=== PATIENT | female | born 1960 | race Caucasian/White ===

== ENCOUNTER 2024-09-29 12:50 | Emergency (ER) | payer OTHER, SELFPAY ==
[2024-09-29 12:50] VITALS: BP 138/79
[2024-09-29 13:56] VITALS: BP 117/60
[2024-09-29 14:11] LABS: % Basophils 0.5 % (0-2); % Eosinophils 0.7 % (0-6); % Immature Granulocytes 0.4 % (0-0.5); % Lymphocytes 12.5 % (20.5-51.1); % Monocytes 8.1 % (1.7-9.3); % Neutrophils 77.8 % (42.2-75.2); Absolute Basophils 0.1 10^3/uL (0-0.2); Absolute Eosinophils 0.1 10^3/uL (0-0.7); Absolute Lymphocytes 1.3 10^3/uL (1.2-3.4); Absolute Monocytes 0.9 10^3/uL (0.1-0.6); Absolute Neutrophils 8.3 10^3/uL (1.4-6.5); Hematocrit 33.2 % (37.0-47.0); Hemoglobin 11.6 g/dL (12.0-16.0); Mean Corp Hgb Conc. 34.9 g/dL (33.0-37.0); Mean Corpuscular Hgb 34.2 pg (27.0-31.0); Mean Corpuscular Volume 97.9 fL (81.0-99.0); Mean Platelet Volume 9.6 fL (7.4-10.4); Nucleated Red Blood Cells % 0 %; Platelet Count 268 10^3/uL (130-400); Red Blood Cell Count 3.39 10^6/uL (4.20-5.40); Red Cell Dist. Width 15.3 % (11.5-14.5); White Blood Cell Count 10.7 10^3/uL (4.8-10.8)
--- NOTE | 2024-09-29 14:13 | ED.GENMED ---
History of Present Illness
<Alexa Mcduffie MD, Resident - Last Filed: 09/29/24 15:00>
General
Chief Complaint: Chest Pain
Time Seen by Provider: 09/29/24 13:51
History of Present Illness
History of Present Illness:
63-year-old female with past medical history of right breast cancer status post lumpectomy and spinal stenosis presenting to the ED via EMS for chest pain. Patient notes chest pain started around noon today when she was walking her dog and lasted
about 20 minutes. Patient describes squeezing midsternal pain that radiated to the interscapular area. She did not take any medications but notes taking aspirin in the ambulance. Also notes chills. Denies shortness of breath, nausea, vomiting,
sweating, palpitations, diarrhea. Patient denies history of similar pain. Is currently asymptomatic.
Past History
<Alexa Mcduffie MD, Resident - Last Filed: 09/29/24 15:00>
Past History
ED Past Medical History: Other (Breast cancer in 2003 with lumpectomy and radiation and chemotherapy (right side))
ED Past Surgical History: Tonsilectomy
Social History
Tobacco: Smoker
Review of Systems
<Alexa Mcduffie MD, Resident - Last Filed: 09/29/24 15:00>
Review of Systems
Constitutional: Reports no symptoms
EENT: Reports no symptoms
Respiratory: Reports no symptoms
Cardiac: Reports chest pain
ABD/GI: Reports no symptoms
: Reports no symptoms
Musculoskeletal: Reports no symptoms
Skin: Reports no symptoms
Neurological: Reports no symptoms
Endocrine: Reports no symptoms
Hematologic/Lymphatic: Reports no symptoms
Psychiatric: Reports no symptoms
Phy Exam
<Alexa Mcduffie MD, Resident - Last Filed: 09/29/24 15:00>
Physical Exam
Physical Exam:
GENERAL: Alert, in no apparent distress
EYE: pupils equal and reactive
NECK: Supple, no significant adenopathy.
ENT: o/p clr, mmm.
CARDIAC: Regular rate and rhythm.
LUNGS: Clear breath sounds bilaterally, no acute respiratory distress, no wheezes/rales/rhonchi
ABDOMEN: Soft, without focal tenderness, no r/g, no cvat
NEUROLOGICAL: Alert and oriented, no focal neuro deficits
SKIN: Warm and dry, skin intact.
MUSCULOSKELETAL: No edema, well perfused.
PSYCH: Normal and appropriate interaction.
Scores
<Alexa Mcduffie MD, Resident - Last Filed: 09/29/24 15:00>
Heart Score for Chest Pain Patients
STEMI patient?: No
History: Moderately Suspicious
ECG: Normal
Age: >45 - <65 years
Risk Factors: 1 or 2 Risk Factors
Troponin: </= Normal Limit
Heart Score for Chest Pain Patients: 3
Heart Score Risk: 2.5% MACE over next 6 weeks
<Jhonny Chisholm, DO - Last Filed: 09/29/24 15:45>
Heart Score for Chest Pain Patients
Heart Score for Chest Pain Patients: 3
Heart Score Risk: 2.5% MACE over next 6 weeks
Course
<Alexa Mcduffie MD, Resident - Last Filed: 09/29/24 15:00>
Orders/Labs/Results
Orders:
Orders
09/29/24 12:53
ECG [Electrocardiogram (*1)] Urgent
Reason for Study: Chest Pain
EKG- Treatment ONCE
09/29/24 13:57
CBC/With Diff [Complete Blood Count/With Diff] Urgent
CMP [Comprehensive Metabolic Panel] Urgent
Lipase Urgent
Troponin I Urgent
09/29/24 14:48
CR Chest - 2 Views Urgent
Comment:
Reason For Exam: chest pain radiating to back
09/29/24 14:54
Add On- LAB Urgent
Tests Added?: Lipase
09/29/24 15:00
D-Dimer Urgent
Troponin I Urgent
Abnormal Lab Results
09/29/24
13:57
RBC 3.39 L 10^6/uL
(4.20-5.40)
Hgb 11.6 L g/dL
(12.0-16.0)
Hct 33.2 L %
(37.0-47.0)
MCH 34.2 H pg
(27.0-31.0)
RDW 15.3 H %
(11.5-14.5)
Absolute Neuts (auto) 8.3 H 10^3/uL
(1.4-6.5)
Absolute Monos (auto) 0.9 H 10^3/uL
(0.1-0.6)
Neutrophils % 77.8 H %
(42.2-75.2)
Lymphocytes % 12.5 L %
(20.5-51.1)
Chloride 110 H mmol/L
(98-107)
09/29/24 13:57
09/29/24 13:57
Vital Signs
Initial and Last Documented VS:
Initial Vital Signs
Temp Pulse Resp BP Pulse Ox
98.4 F 80 16 138/79 100
09/29/24 12:50 09/29/24 12:50 09/29/24 12:50 09/29/24 12:50 09/29/24 12:50
Last Documented Vital Signs
Temp Pulse Resp BP Pulse Ox
98.4 F 79 13 117/60 100
09/29/24 12:50 09/29/24 14:00 09/29/24 14:00 09/29/24 13:56 09/29/24 14:00
<Jhonny Chisholm, DO - Last Filed: 09/29/24 15:45>
Orders/Labs/Results
Orders:
Orders
09/29/24 12:53
ECG [Electrocardiogram (*1)] Urgent
Reason for Study: Chest Pain
EKG- Treatment ONCE
09/29/24 13:57
CBC/With Diff [Complete Blood Count/With Diff] Urgent
CMP [Comprehensive Metabolic Panel] Urgent
Lipase Urgent
Troponin I Urgent
09/29/24 14:48
CR Chest - 2 Views Urgent
Comment:
Reason For Exam: chest pain radiating to back
09/29/24 14:54
Add On- LAB Urgent
Tests Added?: Lipase
09/29/24 15:00
D-Dimer Urgent
Troponin I Urgent
Abnormal Lab Results
09/29/24
13:57
RBC 3.39 L 10^6/uL
(4.20-5.40)
Hgb 11.6 L g/dL
(12.0-16.0)
Hct 33.2 L %
(37.0-47.0)
MCH 34.2 H pg
(27.0-31.0)
RDW 15.3 H %
(11.5-14.5)
Absolute Neuts (auto) 8.3 H 10^3/uL
(1.4-6.5)
Absolute Monos (auto) 0.9 H 10^3/uL
(0.1-0.6)
Neutrophils % 77.8 H %
(42.2-75.2)
Lymphocytes % 12.5 L %
(20.5-51.1)
Chloride 110 H mmol/L
(98-107)
09/29/24 13:57
09/29/24 13:57
Vital Signs
Initial and Last Documented VS:
Initial Vital Signs
Temp Pulse Resp BP Pulse Ox
98.4 F 80 16 138/79 100
09/29/24 12:50 09/29/24 12:50 09/29/24 12:50 09/29/24 12:50 09/29/24 12:50
Last Documented Vital Signs
Temp Pulse Resp BP Pulse Ox
98.4 F 79 13 117/60 100
09/29/24 12:50 09/29/24 14:00 09/29/24 14:00 09/29/24 13:56 09/29/24 14:00
<Alexa Mcduffie MD, Resident - Last Filed: 09/29/24 15:00>
MDM/Problems Addressed
Differential Diagnosis Includes:
ACS
Aortic dissection
Pneumothorax
PE
Pancreatitis
MDM/Problems Addressed:
- CBC, CMP
- Troponin
- EKG
- Chest x-ray
- Lipase
<Alexa Mcduffie MD, Resident - Last Filed: 09/29/24 15:00>
*Critical Care Note
Total Time (30-74mins, 75-104mins- exclusive of procedures): Not Applicable
<Jhonny Chisholm, DO - Last Filed: 09/29/24 15:45>
Update Note
Update Note:
3:45 PM troponin x 2 undetectable D-dimer noted chest x-ray pending
Patient appears comfortable with no recurrent pain
ED Attending Note
<Alexa Mcduffie MD, Resident - Last Filed: 09/29/24 15:00>
-
Portions of this chart may have been created with voice recognition software.� Occasional wrong word or��sound alike� substitutions may have occurred due to the inherent limitations of voice recognition software.
<Jhonny Chisholm, DO - Last Filed: 09/29/24 15:45>
ED Attending Note
Patient seen and examined by attending physician: Yes
I performed a history and physical exam of patient and discussed management with resident, I reviewed resident's note and agree with documented findings and plan of care.: Yes
ED Attending Note:
Seen with resident examined independently 63-year-old female drinker smoker who was out walking her dog had some sharp pain in her chest between her shoulder blades, no nausea vomiting diaphoresis, no prior episodes, lasted about 10 minutes started
around noon, EKG looks nonischemic first troponin noted will check chest x-ray, high-sensitivity D-dimer repeat troponin
Discharge Plan
Departure
Patient Disposition: Home (Routine Discharge)
Date of Disposition: 09/29/24
Time of Disposition: 15:44
Patient with high blood pressure during this ER visit?: No
Condition: Good
Discharge Problem:
Chest pain
Instructions: Chest Pain CBC Follow Up
Prescriptions:
No Action
No Meds [No Current Medications]
0
prednisone 20 MG tablet
20 mg PO BID Qty: 10 0RF
Referrals:
Alvin Beasley MD [Family Provider] - Next open appointment
Wally Dillard MD [Active] - Next open appointment
Interventions
Interventions:
*Risk Screen - Suicide Last Done: 09/29/24 12:50
*General Assessment Last Done: 09/29/24 12:50
*Neglect/Abuse Screening Last Done: 09/29/24 12:50
ED- Cardiac Assessment Last Done: 09/29/24 14:02
Discharge Date and Time
Print Language: ZIMBABWE[place]
[2024-09-29 14:21] LABS: ALT (SGPT) 12 U/L (0-35); AST (SGOT) 15 U/L (14-36); Albumin 4.1 g/dl (3.5-5.0); Alkaline Phosphatase 75 U/L (38-126); Blood Urea Nitrogen 8 mg/dl (7-17); Calcium 8.8 mg/dl (8.4-10.2); Carbon Dioxide 22 mmol/L (22-30); Chloride 110 mmol/L (98-107); Glucose 88 mg/dl (70-99); Potassium 4.1 mmol/L (3.5-5.1); Sodium 139 mmol/L (135-145); Total Bilirubin 0.6 mg/dl (0.2-1.3); Total Protein 6.3 g/dl (6.3-8.2); eGFR > 60.00
[2024-09-29 14:33] LABS: Troponin I < 0.012 ng/ml
[2024-09-29 15:16] LABS: Lipase 32 U/L (23-300)
[2024-09-29 15:24] LABS: D-Dimer < 0.27 ug/mlFEU (0.00-0.50)
[2024-09-29 15:36] LABS: Troponin I < 0.012 ng/ml
[2024-09-29 15:37] VITALS: BP 128/60
== END 2024-09-29 16:17 | disposition home or self-care (01) ==
LOC: EMR 12:50
PROVIDERS: EMERGENCY PHYSICIAN Emergency Medicine; FAMILY PHYSICIAN Internal Medicine
DX: R07.89 Other chest pain (principal); F17.200 Nicotine dependence, unspecified, uncomplicated; Z85.3 Personal history of malignant neoplasm of breast
CPT/HCPCS: 99285; 71046; 80053; 83690; 84484; 85025; 85379; 93005

== ENCOUNTER 2025-07-12 17:41 | Emergency (ER) | payer OTHER, SELFPAY ==
[2025-07-12 17:43] VITALS: BP 139/84
--- NOTE | 2025-07-12 21:17 | ED.GENMED ---
History of Present Illness
General
Chief Complaint: Back Pain
Time Seen by Provider: 07/12/25 20:40
History of Present Illness
History of Present Illness:
64-year-old female presenting with low back pain starting this morning after she lifted her 70 pound dog. Patient states that she lifted her dog and felt a pop in her low back. Patient states that pain radiates down the back of her left leg and
felt waves of numbness in her groin that is since resolved. Patient denies any incontinence. Patient denies numbness or focal weakness. Patient reports taking Tylenol and Motrin with minimal relief.
Past History
Past History
ED Past Medical History: Other (Breast cancer in 2002 with lumpectomy and radiation and chemotherapy (right side))
ED Past Surgical History: Tonsilectomy
Social History
Tobacco: Smoker
Phy Exam
Physical Exam
Physical Exam:
General: Alert, no acute distress
Head: NCAT
Eyes: clear conjunctiva
Neck: supple
Cardiac: regular rate and rhythm, no murmur
Lungs: clear to auscultation bilaterally. No wheezes, rales, or rhonchi. Speaking full unlabored sentences. No respiratory distress.
Abdomen: soft, nondistended nontender. No rebound or guarding.
MSK: no lower extremity edema bilaterally. No deformity . No midline thoracic/lumbar tenderness to palpation
Rectal: sensation intact, no paraesthesias. rectal tone intact
Skin: warm, dry
Neuro: Alert and oriented x3. 5/5 strength bilateral hip/knee/ankle flexion extension. Sensation intact throughout with no saddle paresthesias. 5-5 strength extensor hallux longus bilaterally
Course
Orders/Labs/Results
Orders:
Orders
07/12/25 21:16
Acetaminophen [Tylenol] 1,000 mg PO NOW STA
Cyclobenzaprine HCl [Flexeril] 10 mg PO NOW STA
Ketorolac [Toradol] 30 mg IM NOW STA
Prednisone [Deltasone] 50 mg PO NOW STA
07/12/25 21:17
Lidocaine [Lidocaine 4% Patch] 1 patch TOPICAL ONCE STA
Apply Lidocaine patch(s) to:: low back
Vital Signs
Initial and Last Documented VS:
Initial Vital Signs
Temp Pulse Resp BP Pulse Ox
97.7 F 77 18 139/84 98
07/12/25 17:43 07/12/25 17:43 07/12/25 17:43 07/12/25 17:43 07/12/25 17:43
Last Documented Vital Signs
Temp Pulse Resp BP Pulse Ox
97.7 F 76 18 132/73 99
07/12/25 17:43 07/12/25 21:35 07/12/25 21:35 07/12/25 21:35 07/12/25 21:35
MDM/Problems Addressed
MDM/Problems Addressed:
64-year-old female presented with low back pain radiating down the back of her left leg starting today. Neurologically intact with no tenderness to palpation. Low suspicion for cauda equina given neurologically intact, normal rectal tone,
sensation intact. ?Lumbar radiculopathy. Will start on prednisone. Stable discharge with Flexeril, lidocaine patch, prednisone. Discussed return precautions. Patient expressed verbal understanding
*Pulse Oximetry
SaO2: 98
Oxygen Mode of Delivery: Room air
Patient hypoxic: no
*Critical Care Note
Total Time (30-74mins, 75-104mins- exclusive of procedures): Not Applicable
ED Attending Note
-
Portions of this chart may have been created with voice recognition software.� Occasional wrong word or��sound alike� substitutions may have occurred due to the inherent limitations of voice recognition software.
Discharge Plan
Departure
Patient Disposition: Home (Routine Discharge)
Date of Disposition: 07/12/25
Time of Disposition: 21:20
Patient with high blood pressure during this ER visit?: Yes
Discharge Problem:
Acute lumbar radiculopathy
Instructions: Low Back Pain (DC), BLOOD PRESSURE
Prescriptions:
New
prednisone 20 mg tablet
40 mg PO DAILY 4 Days Qty: 8 0RF
lidocaine 5 % adhesive patch,medicated
1 patch topical DAILY Qty: 30 0RF
cyclobenzaprine 5 mg tablet
5 mg PO TID PRN (Reason: muscle spasm) Qty: 30 0RF
No Action
No Meds [No Current Medications]
0
prednisone 20 MG tablet
20 mg PO BID Qty: 10 0RF
aspirin [Aspirin Childrens] 81 mg tablet,chewable
81 mg PO DAILY Qty: 90 0RF
Referrals:
Alvin Beasley MD [Family Provider, Internal Medicine]
Activity Restrictions/Additional Instructions:
Take Tylenol 975 mg every 6 hours and/or Ibuprofen 800 mg every 8 hours with food as needed for pain
Take Flexeril as needed for muscle spasm
Take prednisone daily for the next 4 days starting tomorrow. You received first dose in the ER today
Use lidocaine patch as needed for pain. If prescription is too expensive, purchase [id number] lidocaine patches they are nearly the same
Follow-up with your primary care doctor within 1 week. Follow-up with your spine doctor next week
Return to the emergency department for loss of bowel/bladder control, focal weakness, numbness or new/worsening symptoms
Interventions
Interventions:
*Risk Screen - Suicide Last Done: 07/12/25 17:43
*General Assessment Last Done: 07/12/25 17:43
*Neglect/Abuse Screening Last Done: 07/12/25 17:43
*ED- Fall Risk Assessment Last Done: 07/12/25 21:36
*ED COVID-19 Vaccine History Last Done: 07/12/25 17:43
*Nursing Disposition Last Done: 07/12/25 21:36
ED-Musculoskeletal Assessment Last Done: 07/12/25 20:00
Discharge Date and Time
Discharge Date/Time: 07/12/25 21:36
Print Language: MALIAN
[2025-07-12] MEDS: DELTASONE 50 MG PO (21:24)
[2025-07-12] MEDS: TORADOL 30 MG IM (21:24)
[2025-07-12] MEDS: LIDOCAINE 4% PATCH 1 PATCH TOPICAL (21:25)
[2025-07-12] MEDS: FLEXERIL 10 MG PO (21:25)
[2025-07-12] MEDS: TYLENOL 1000 MG PO (21:25)
[2025-07-12 21:35] VITALS: BP 132/73
== END 2025-07-12 21:36 | disposition home or self-care (01) ==
LOC: EMR 17:41
PROVIDERS: EMERGENCY PHYSICIAN Emergency Medicine; FAMILY PHYSICIAN Internal Medicine
DX: M54.16 Radiculopathy, lumbar region (principal); F17.200 Nicotine dependence, unspecified, uncomplicated
CPT/HCPCS: 96372; 99284